=== PATIENT | male | born 1985 | race Caucasian/White ===

== ENCOUNTER → 2021-10-30 | Outpatient (CLI) ==
[~2021-10-30] MED LIST: CEPH-38 PO; CLOMID PO; MELO-195 PO; MULT1CAP27 PO; OXYC1TAB87 PO
== END ==
LOC: LABNPT 09:06 → MERGE 09:06
PROVIDERS: ATTEND Family Medicine
DX: U07.1 COVID-19 (principal)
CPT/HCPCS: 87635